=== PATIENT | female | born 1990 | race Caucasian/White ===

== ENCOUNTER 2019-05-21 11:16 | Emergency (ER) | payer BC, OTHER ==
[~2019-05-21] VITALS: Ht 160 cm; Wt 69.0 kg
[2019-05-21] MEDS ORDERED: IBUP200C25 PO (11:22)
[2019-05-21] MEDS ORDERED: QC A650T3 PO (11:22)
[2019-05-21] MEDS ORDERED: NORCO, ANEXSIA 5/325MG TABLET (HYDROcodone/ACETAMINOPHEN) PO ONE (11:45)
--- NOTE | 2019-05-21 12:12 | REP ---
Clinical: Trauma. Technique: AP, lateral, bilateral oblique views. Findings: The carpal bones, surrounding osseous structures, soft tissues, and joint spaces are normal. There is no evidence for acute fracture or dislocation. No subcutaneous emphysema or radiodense foreign body. Impression: Normal wrist series. No acute fracture or dislocation Electronically Signed by Ant Schaefer MD 05/21/2019 12:04 P
--- NOTE | 2019-05-21 12:15 | REP ---
The clinical: Trauma. Technique: AP, lateral views of the right hand. Findings: Acute versus old fracture involving the distal aspect of the fifth metacarpal bone requires correlation. Remainder examination appears normal. Impression: Acute versus old fracture of the fifth metacarpal bone requires correlation. Remainder examination appears normal. Electronically Signed by Ant Schaefer MD 05/21/2019 12:06 P
--- NOTE | 2019-05-21 12:16 | REP ---
Clinical: Trauma. Technique: AP and lateral views of the right forearm. Findings: No acute fracture or dislocation. Skeletal structures, joint spaces, and surrounding soft tissues appear normal. Impression: No acute fracture or dislocation. Electronically Signed by Ant Schaefer MD 05/21/2019 12:07 P
[2019-05-21] MEDS ORDERED: NORC1TAB7 PO (12:54)
[2019-05-21 13:00] VITALS: BP 125/74
== END 2019-05-21 13:04 | disposition home or self-care (01) ==
LOC: M ED 11:16
DX: S62.306B Unspecified fracture of fifth metacarpal bone, right hand, initial encounter for open fracture (principal); W18.30XA Fall on same level, unspecified, initial encounter; Y92.098 Other place in other non-institutional residence as the place of occurrence of the external cause; F17.210 Nicotine dependence, cigarettes, uncomplicated

== ENCOUNTER → 2019-05-25 | Outpatient (REF) | payer OTHER ==
[~2019-05-25] MED LIST: IBUP200C25 PO; NORC1TAB7 PO; QC A650T3 PO
== END ==
LOC: M LAB 13:28
PROVIDERS: ATTEND Physician Assistant
DX: R50.9 Fever, unspecified (principal)

== ENCOUNTER 2019-05-28 11:05 | Emergency (ER) | payer OTHER ==
[~2019-05-28] VITALS: Ht 160 cm; Wt 66.5 kg
[2019-05-28] MEDS ORDERED: [UNRECOGNIZED DRUG - OTHER] (11:11)
[2019-05-28] MEDS ORDERED: BENZ200C70 PO (11:11)
--- NOTE | 2019-05-28 13:00 | REP ---
Chest x-ray: Two views. History: Shortness of breath and cough . Comparison study: May 09, 2007 . Findings: The lungs are well inflated and free of infiltrate. The pleural angles are sharp. The heart size is normal. Pulmonary vasculature is not increased. No significant bony abnormality is seen. Impression: Negative chest x-ray. Electronically Signed by Harrison Pepper MD 05/28/2019 12:52 P
[2019-05-28 13:15] VITALS: BP 123/75
[2019-05-28] MEDS ORDERED: MOME50SP NARES (13:25)
[2019-05-28] MEDS ORDERED: MUCI30TA5 PO (13:25)
== END 2019-05-28 13:30 | disposition home or self-care (01) ==
LOC: M ED 11:05
DX: J06.9 Acute upper respiratory infection, unspecified (principal)

== ENCOUNTER 2019-06-17 14:53 | Emergency (ER) | payer OTHER ==
[~2019-06-17] VITALS: Ht 160 cm; Wt 60.1 kg
[~2019-06-17 14:53] MED LIST changes: +BENZ200C70 PO; +MOME50SP NARES; +MUCI30TA5 PO; +[UNRECOGNIZED DRUG - OTHER]
[2019-06-17 14:54] VITALS: BP 132/84
[2019-06-17 15:57] LABS: BASO % 0.4 % (0.0-1.0); EOS # 0.2 10^3/uL (0.0-0.5); EOS % 2.2 % (0.0-3.0); HEMATOCRIT 41.2 % (36.0-47.0); HEMOGLOBIN 13.3 g/dl (12.0-15.5); LYMPH % 26.4 % (24.0-44.0); MEAN CORPUSCULAR HEMOGLOBIN 28.1 pg (27.0-33.0); MEAN CORPUSCULAR HGB CONC 32.3 g/dl (32.0-36.5); MEAN CORPUSCULAR VOLUME 86.9 fl (80.0-96.0); MONO # 0.5 10^3/uL (0.0-0.8); MONO % 6.1 % (0.0-5.0); NEUTROPHILS # 4.8 10^3/uL (1.5-8.5); NEUTROPHILS % 64.6 % (36.0-66.0); PLATELET COUNT, AUTOMATED 207 10^3/uL (150-450); RED BLOOD COUNT 4.74 10^6/uL (4.00-5.40); WHITE BLOOD COUNT 7.4 10^3/uL (4.0-10.0)
[2019-06-17 16:25] LABS: ALBUMIN 3.7 GM/DL (3.2-5.2); ALT/SGPT 15 U/L (12-78); BILIRUBIN,DIRECT < 0.1 MG/DL (0.0-0.2); BILIRUBIN,TOTAL 0.2 MG/DL (0.2-1.0); LIPASE 194 U/L (73-393); TOTAL PROTEIN 6.6 GM/DL (6.4-8.2)
== END 2019-06-17 19:09 | disposition left against medical advice (07) ==
LOC: M ED 14:53
DX: Z53.21 Procedure and treatment not carried out due to patient leaving prior to being seen by health care provider (principal)

== ENCOUNTER 2019-06-30 17:17 | Emergency (ER) | payer OTHER ==
[~2019-06-30] VITALS: Ht 160 cm; Wt 67.1 kg
[2019-06-30 18:17] LABS: BASO % 0.2 % (0.0-1.0); EOS # 0.2 10^3/uL (0.0-0.5); HEMATOCRIT 42.9 % (36.0-47.0); HEMOGLOBIN 13.6 g/dl (12.0-15.5); LYMPH # 2.4 10^3/uL (1.5-5.0); LYMPH % 25.6 % (24.0-44.0); MEAN CORPUSCULAR HEMOGLOBIN 27.8 pg (27.0-33.0); MEAN CORPUSCULAR HGB CONC 31.7 g/dl (32.0-36.5); MEAN CORPUSCULAR VOLUME 87.6 fl (80.0-96.0); MONO # 0.5 10^3/uL (0.0-0.8); NEUTROPHILS # 6.1 10^3/uL (1.5-8.5); NEUTROPHILS % 66.9 % (36.0-66.0); PLATELET COUNT, AUTOMATED 212 10^3/uL (150-450); WHITE BLOOD COUNT 9.2 10^3/uL (4.0-10.0)
[2019-06-30] MEDS ORDERED: MORPHINE 4 MG/ML 1ML VIAL/SYRINGE (J2270) IV ONE (18:30)
[2019-06-30 18:36] LABS: ALT/SGPT 32 U/L (12-78); BILIRUBIN,DIRECT 0.2 MG/DL (0.0-0.2); BILIRUBIN,TOTAL 0.5 MG/DL (0.2-1.0); BLOOD UREA NITROGEN 14 MG/DL (7-18); CALCIUM LEVEL 9.1 MG/DL (8.5-10.1); CARBON DIOXIDE LEVEL 28 MEQ/L (21-32); CHLORIDE LEVEL 107 MEQ/L (98-107); CREATININE FOR GFR 0.74 MG/DL (0.55-1.30); GLOMERULAR FILTRATION RATE > 60.0 (>60); GLUCOSE, FASTING 90 MG/DL (70-100); LIPASE 168 U/L (73-393); POTASSIUM SERUM 4.2 MEQ/L (3.5-5.1); SODIUM LEVEL 140 MEQ/L (136-145); TOTAL PROTEIN 7.6 GM/DL (6.4-8.2)
[2019-06-30 18:44] LABS: HCG, SERUM QUALITATIVE NEGATIVE (NEGATIVE)
--- NOTE | 2019-06-30 19:23 | REPVR ---
PROCEDURE INFORMATION: Exam: CT Abdomen And Pelvis Without Contrast Exam date and time: 06/30/2019 6:56 PM Age: 28 years old Clinical indication: Abdominal pain; Flank; Right; Additional info: Right flank pain TECHNIQUE: Imaging protocol: Computed tomography of the abdomen and pelvis without contrast. Axial, coronal and sagittal reformatted images were created and reviewed. Radiation optimization: All CT scans at this facility use at least one of these dose optimization techniques: automated exposure control; mA and/or kV adjustment per patient size (includes targeted exams where dose is matched to clinical indication); or iterative reconstruction. COMPARISON: No relevant prior studies available. FINDINGS: Liver: Unremarkable. Gallbladder and bile ducts: No radiodense gallstones. No biliary ductal dilatation. Pancreas: Unremarkable. Spleen: Unremarkable. Adrenals: Unremarkable. Kidneys and ureters: Non-obstructing bilateral renal calculi. No hydronephrosis. Stomach and bowel: No bowel wall thickening. No obstruction. No pneumatosis. Appendix: Findings suggestive of prior appendectomy. Intraperitoneal space: No free fluid. No organized fluid collection. No free air. Vasculature: Unremarkable. No aneurysm. Lymph nodes: No pathologically enlarged lymph nodes. Bladder: Unremarkable. Reproductive: 2.8 x 2.6 cm left adnexal cystic lesion, likely a follicular cyst. Status post hysterectomy. Bones/joints: No acute osseous abnormality. Soft tissues: Unremarkable. IMPRESSION: 1. Limited noncontrast examination. 2. Non-obstructing bilateral renal calculi. No hydronephrosis. 3. Additional findings, as above. Electronically signed by: Rajan Concepcion On 06/30/2019 19:22:40 PM
[2019-06-30] MEDS ORDERED: IBUP80TA PO (19:55)
[2019-06-30] MEDS ORDERED: CYCL5TAB PO (19:55)
[2019-06-30 20:17] VITALS: BP 134/82
== END 2019-06-30 20:27 | disposition home or self-care (01) ==
LOC: M ED 17:17
DX: M54.5 Low back pain (principal); E28.2 Polycystic ovarian syndrome; Z88.0 Allergy status to penicillin; Z88.5 Allergy status to narcotic agent; Z88.8 Allergy status to other drugs, medicaments and biological substances; Z87.891 Personal history of nicotine dependence
CPT/HCPCS: 74176; 80048; 80076; 81001; 83690; 84703; 85025; 96374; 99284; J2270

== ENCOUNTER 2019-10-16 14:00 | Emergency (ER) | payer OTHER, SELFPAY ==
[~2019-10-16] VITALS: Ht 160 cm; Wt 68.5 kg
[~2019-10-16 14:00] MED LIST changes: +CYCL5TAB PO; +IBUP80TA PO
[2019-10-16] MEDS ORDERED: ACET-683 PO (14:09)
[2019-10-16] MEDS ORDERED: NS 1,000 ML IV ONE (14:30)
[2019-10-16] MEDS ORDERED: MORPHINE 4 MG/ML 1ML VIAL/SYRINGE (J2270) IV ONE (14:30)
[2019-10-16] MEDS ORDERED: ONDANSETRON 4MG/2ML VIAL IV ONE (14:30)
[2019-10-16 14:58] LABS: BASO % 0.3 % (0.0-1.0); EOS # 0.2 10^3/uL (0.0-0.5); EOS % 3.2 % (0.0-3.0); HEMATOCRIT 41.5 % (36.0-47.0); LYMPH # 1.5 10^3/uL (1.5-5.0); MEAN CORPUSCULAR HEMOGLOBIN 29.5 pg (27.0-33.0); MEAN CORPUSCULAR HGB CONC 33.7 g/dl (32.0-36.5); MEAN CORPUSCULAR VOLUME 87.6 fl (80.0-96.0); MONO # 0.4 10^3/uL (0.0-0.8); MONO % 5.9 % (0.0-5.0); NEUTROPHILS # 3.8 10^3/uL (1.5-8.5); NEUTROPHILS % 64.3 % (36.0-66.0); PLATELET COUNT, AUTOMATED 167 10^3/uL (150-450); RED BLOOD COUNT 4.74 10^6/uL (4.00-5.40); WHITE BLOOD COUNT 5.9 10^3/uL (4.0-10.0)
--- NOTE | 2019-10-16 15:24 | REP ---
CT ABDOMEN AND PELVIS WITHOUT IV OR ORAL CONTRAST: Renal stone protocol. HISTORY: Flank pain and dysuria. COMPARISON STUDY: June 30, 2019. CT FINDINGS: Preliminary digital technical trainer radiograph shows an unremarkable bowel gas pattern. The lung bases are clear. The liver and the spleen are normal in size homogeneous in texture. No abnormality is noted in the gallbladder or the pancreas x CT. No adrenal lesion is seen on either side. There is a 4 mm intrarenal calculus in the upper pole left kidney. There is a 2 mm intrarenal calculus in the lower pole of the left kidney. There is no evidence of hydronephrosis. No intrarenal calculus is seen on the right. Left renal calculi are unchanged. I do not see an intrarenal calculus on the right. No ureteral stone is observed. There are phleboliths in the pelvis. Uterus is surgically absent. No bladder calculus is seen. There are sutures at the cecal tip consistent with prior appendectomy. Small and large bowel loops are unremarkable. No abdominal wall defect is observed. IMPRESSION: The uterus and appendix are surgically absent. There is intrarenal nephrolithiasis left kidney unchanged from the comparison study June 30, 2019. No hydronephrosis is seen. No other urinary tract calculus is observed. Otherwise negative CT study abdomen and pelvis. Electronically Signed by Harrison Pepper MD 10/16/2019 03:30 P
[2019-10-16] MEDS ORDERED: CYCLOBENZAPRINE 10MG TABLET PO ONE (15:30)
[2019-10-16] MEDS ORDERED: ACETAMINOPHEN 325 MG TAB PO ONE (15:30)
[2019-10-16] MEDS ORDERED: CYCL5TAB PO (17:01)
[2019-10-16 17:08] VITALS: BP 120/66
== END 2019-10-16 17:11 | disposition home or self-care (01) ==
LOC: M ED 14:00
DX: S39.012A Strain of muscle, fascia and tendon of lower back, initial encounter (principal); X58.XXXA Exposure to other specified factors, initial encounter; Y92.89 Other specified places as the place of occurrence of the external cause; R11.10 Vomiting, unspecified; E28.2 Polycystic ovarian syndrome; Z87.42 Personal history of other diseases of the female genital tract; Z87.442 Personal history of urinary calculi; Z88.0 Allergy status to penicillin; Z88.5 Allergy status to narcotic agent; F17.210 Nicotine dependence, cigarettes, uncomplicated
CPT/HCPCS: 74176; 80047; 81001; 84702; 85025; 96361; 96374; 96375; 99284; J2270; J2405

== ENCOUNTER 2020-01-17 15:56 | Emergency (ER) | payer SELFPAY ==
[~2020-01-17] VITALS: Ht 160 cm; Wt 70.8 kg
[~2020-01-17 15:56] MED LIST changes: +ACET-683 PO
[2020-01-17 15:57] VITALS: BP 132/83
[2020-01-17] MEDS ORDERED: NAPR-837 PO (17:39)
--- NOTE | 2020-02-17 09:57 | REP ---
RIGHT KNEE RADIOGRAPH SERIES CLINICAL: Trauma while running. TECHNIQUE: AP, lateral, bilateral oblique, and coned down views of the right knee. FINDINGS: Osseous structures, joint spaces, and surrounding soft tissues are normal. No acute fracture or dislocation. No subcutaneous emphysema or foreign body. IMPRESSION: Normal right knee radiographs. MTDD
== END 2020-01-17 17:50 | disposition home or self-care (01) ==
LOC: M ED 15:56
DX: S83.421A Sprain of lateral collateral ligament of right knee, initial encounter (principal); X50.9XXA Other and unspecified overexertion or strenuous movements or postures, initial encounter; Y92.9 Unspecified place or not applicable; Y93.02 Activity, running; Y99.8 Other external cause status; Z88.0 Allergy status to penicillin; Z88.5 Allergy status to narcotic agent; Z88.8 Allergy status to other drugs, medicaments and biological substances; Z87.828 Personal history of other (healed) physical injury and trauma

== ENCOUNTER 2020-03-23 19:05 | Emergency (ER) | payer SELFPAY ==
[~2020-03-23] VITALS: Ht 160 cm; Wt 72.2 kg
[~2020-03-23 19:05] MED LIST changes: +NAPR-837 PO
[2020-03-23] MEDS ORDERED: ONDANSETRON 4MG/2ML VIAL IV ONE (19:45)
[2020-03-23] MEDS ORDERED: DICYCLOMINE INJ 20MG/2ML (J0500) IM ONE (19:45)
[2020-03-23] MEDS ORDERED: NS 1,000 ML IV ONE (19:45)
[2020-03-23 19:59] LABS: BASO % 0.5 % (0.0-1.0); EOS # 0.3 10^3/uL (0.0-0.5); EOS % 5.5 % (0.0-3.0); HEMATOCRIT 42.3 % (36.0-47.0); HEMOGLOBIN 13.8 g/dl (12.0-15.5); LYMPH # 1.6 10^3/uL (1.5-5.0); LYMPH % 28.2 % (24.0-44.0); MEAN CORPUSCULAR HEMOGLOBIN 29.4 pg (27.0-33.0); MEAN CORPUSCULAR HGB CONC 32.6 g/dl (32.0-36.5); MEAN CORPUSCULAR VOLUME 90.2 fl (80.0-96.0); MONO # 0.4 10^3/uL (0.0-0.8); MONO % 6.5 % (0.0-5.0); NEUTROPHILS # 3.3 10^3/uL (1.5-8.5); NEUTROPHILS % 58.8 % (36.0-66.0); PLATELET COUNT, AUTOMATED 175 10^3/uL (150-450); RED BLOOD COUNT 4.69 10^6/uL (4.00-5.40); WHITE BLOOD COUNT 5.7 10^3/uL (4.0-10.0)
[2020-03-23 20:25] LABS: ALBUMIN 3.6 GM/DL (3.2-5.2); BILIRUBIN,DIRECT 0.1 MG/DL (0.0-0.2); BILIRUBIN,TOTAL 0.3 MG/DL (0.2-1.0); TOTAL PROTEIN 6.8 GM/DL (6.4-8.2)
[2020-03-23] MEDS ORDERED: MORPHINE 2 MG/ML 1ML VIAL (J2270) IV ONE (20:30)
--- NOTE | 2020-03-23 20:49 | REPVR ---
PROCEDURE INFORMATION: Exam: CT Abdomen And Pelvis With Contrast Exam date and time: 03/23/2020 8:12 PM Age: 29 years old Clinical indication: Abdominal pain; Localized; Left; Additional info: Left sided abdominal pain; ? Coliitis vs diverticulitis TECHNIQUE: Imaging protocol: Computed tomography of the abdomen and pelvis with intravenous contrast. Radiation optimization: All CT scans at this facility use at least one of these dose optimization techniques: automated exposure control; mA and/or kV adjustment per patient size (includes targeted exams where dose is matched to clinical indication); or iterative reconstruction. Contrast material: ISOVUE 370; Contrast volume: 100 ml; Contrast route: INTRAVENOUS (IV); COMPARISON: CT ABD PELVIS W/O CONTRAST 10/16/2019 2:50 PM FINDINGS: Liver: Normal. No mass. Gallbladder and bile ducts: Normal. No calcified stones. No ductal dilation. Pancreas: Normal. No ductal dilation. Spleen: Normal. No splenomegaly. Adrenal glands: Normal. No mass. Kidneys and ureters: Nonobstructing calyceal stone in the left kidney. No renal masses. No hydronephrosis. Stomach and bowel: Unremarkable. No obstruction. No mucosal thickening. Appendix: There has been prior appendectomy. Intraperitoneal space: Unremarkable. No free air. No significant fluid collection. Vasculature: Unremarkable. No abdominal aortic aneurysm. Lymph nodes: Unremarkable. No enlarged lymph nodes. Urinary bladder: Unremarkable as visualized. Reproductive: There has been prior hysterectomy. Bones/joints: Unremarkable. No acute fracture. Soft tissues: Unremarkable. IMPRESSION: 1. No acute findings. 2. Nonobstructing calyceal stone in the left kidney. No hydronephrosis. Electronically signed by: Chad Ricks On 03/23/2020 20:49:00 PM
[2020-03-23] MEDS ORDERED: ISOVUE-370 76% 100ML VIAL As Ordered ONE (20:50)
[2020-03-23] MEDS ORDERED: REGL10TA6 PO (20:57)
[2020-03-23 21:05] VITALS: BP 108/55
== END 2020-03-23 21:09 | disposition home or self-care (01) ==
LOC: M ED 19:05
DX: R10.12 Left upper quadrant pain (principal); R10.32 Left lower quadrant pain; R11.10 Vomiting, unspecified; Z87.442 Personal history of urinary calculi; Z87.42 Personal history of other diseases of the female genital tract; F17.210 Nicotine dependence, cigarettes, uncomplicated; Z88.1 Allergy status to other antibiotic agents; Z88.5 Allergy status to narcotic agent
CPT/HCPCS: 74177; 80047; 80076; 83690; 85025; 96372; 96374; 96375; 99284; J0500; J2270; J2405; Q9967

== ENCOUNTER 2020-05-02 17:15 | Emergency (ER) | payer SELFPAY ==
[~2020-05-02] VITALS: Ht 160 cm; Wt 78.2 kg
[~2020-05-02 17:15] MED LIST changes: +REGL10TA6 PO
[2020-05-02] MEDS ORDERED: predniSONE 20 MG TAB PO ONE (18:00)
[2020-05-02] MEDS ORDERED: CYCLOBENZAPRINE 10MG TABLET PO ONE (18:00)
--- NOTE | 2020-05-02 18:54 | REP ---
INDICATION: daughter jumped on back. COMPARISON: None. TECHNIQUE: Five views lumbosacral spine obtained. FINDINGS: No compression fracture or malalignment. There is normal lumbar lordosis. There is no spondylolysis or spondylolisthesis. Disc spaces are well preserved. The posterior elements are intact. Subcentimeter calculus is noted in the lower pole the left kidney. IMPRESSION: Negative lumbosacral spine series. <Electronically signed by Carlos Gaitan > 05/02/20 [id number]
--- NOTE | 2020-05-02 18:56 | REP ---
INDICATION: daughter jumped on back. COMPARISON: None. TECHNIQUE: Three AP and lateral views obtained of the thoracic spine. FINDINGS: No fracture or malalignment. Normal thoracic kyphosis. Disc spaces are well preserved. Posterior elements are intact. IMPRESSION: Negative thoracic spine series. <Electronically signed by Carlos Gaitan > 05/02/20 [id number]
[2020-05-02] MEDS ORDERED: PRED20TA PO (19:27)
[2020-05-02] MEDS ORDERED: CYCL5TAB PO (19:27)
[2020-05-02 19:37] VITALS: BP 121/79
== END 2020-05-02 19:38 | disposition home or self-care (01) ==
LOC: M ED 17:15
DX: M54.9 Dorsalgia, unspecified (principal); E28.2 Polycystic ovarian syndrome; F17.200 Nicotine dependence, unspecified, uncomplicated; Z87.442 Personal history of urinary calculi; Z88.1 Allergy status to other antibiotic agents; Z88.5 Allergy status to narcotic agent; Z88.6 Allergy status to analgesic agent

== ENCOUNTER 2020-06-15 12:32 | Emergency (ER) | payer SELFPAY ==
[~2020-06-15] VITALS: Ht 160 cm; Wt 76.6 kg
[~2020-06-15 12:32] MED LIST changes: +PRED20TA PO
[2020-06-15] MEDS ORDERED: NS 1,000 ML IV ONE (14:15)
[2020-06-15 14:35] LABS: BASO % 0.4 % (0.0-1.0); EOS # 0.1 10^3/uL (0.0-0.5); EOS % 1.6 % (0.0-3.0); HEMATOCRIT 42.5 % (36.0-47.0); LYMPH # 0.9 10^3/uL (1.5-5.0); LYMPH % 17.7 % (24.0-44.0); MEAN CORPUSCULAR HEMOGLOBIN 29.1 pg (27.0-33.0); MEAN CORPUSCULAR HGB CONC 32.9 g/dl (32.0-36.5); MEAN CORPUSCULAR VOLUME 88.4 fl (80.0-96.0); MONO # 0.5 10^3/uL (0.0-0.8); MONO % 9.4 % (0.0-5.0); NEUTROPHILS # 3.6 10^3/uL (1.5-8.5); NEUTROPHILS % 70.7 % (36.0-66.0); PLATELET COUNT, AUTOMATED 188 10^3/uL (150-450); RED BLOOD COUNT 4.81 10^6/uL (4.00-5.40)
[2020-06-15] MEDS ORDERED: MORPHINE 4 MG/ML 1ML VIAL/SYRINGE (J2270) IV ONE (14:45)
[2020-06-15] MEDS ORDERED: ONDANSETRON 4MG/2ML VIAL IV ONE (14:45)
[2020-06-15 14:57] LABS: ALBUMIN 4.2 GM/DL (3.2-5.2); BILIRUBIN,DIRECT 0.1 MG/DL (0.0-0.2); BILIRUBIN,TOTAL 0.4 MG/DL (0.2-1.0); TOTAL PROTEIN 7.4 GM/DL (6.4-8.2)
--- NOTE | 2020-06-15 15:27 | REP ---
INDICATION: R flank pain, h/o kidney stones COMPARISON: Comparison study March 23, 2020.. TECHNIQUE: Helical scanning is acquired in 4 mm axial images were reformatted. Coronal and sagittal MPR images were generated and reviewed. FINDINGS: Preliminary digital electrolysis investigator radiograph is noncontributory. The liver and the spleen are normal in size homogeneous in texture. Normal adrenal glands are observed bilaterally. No abnormality is noted in the gallbladder or the pancreas. There is a small accessory splenule again noted in the left upper quadrant near the tail of the pancreas. There is a tiny intrarenal calculus in the lower pole of each kidney 1-2 mm in size. There is no evidence of hydronephrosis on either side. No ureteral or bladder calculus is apparent. The uterus and appendix are surgically absent. No adnexal pathology is seen. No abdominal wall defect is observed. Small and large bowel loops are unremarkable in the abdomen and pelvis. no bony destructive lesion is appreciated. IMPRESSION: Bilateral intrarenal nephrolithiasis, 1 tiny calculus in each lower pole. No hydronephrosis. Status post appendectomy and hysterectomy. Otherwise negative CT abdomen and pelvis. <Electronically signed by Dann Pepper > 06/15/20 [id number]
[2020-06-15] MEDS ORDERED: ACETAMINOPHEN 325 MG TAB PO ONE (16:00)
[2020-06-15] MEDS ORDERED: HYDR-3713 PO (16:30)
[2020-06-15 16:38] VITALS: BP 133/58
== END 2020-06-15 16:39 | disposition home or self-care (01) ==
LOC: M ED 12:32
DX: N20.0 Calculus of kidney (principal); Z87.891 Personal history of nicotine dependence; Z88.1 Allergy status to other antibiotic agents; Z88.6 Allergy status to analgesic agent; Z88.8 Allergy status to other drugs, medicaments and biological substances
CPT/HCPCS: 74176; 80047; 80076; 81001; 83690; 85025; 96361; 96374; 96375; 99284; J2270; J2405

== ENCOUNTER 2021-01-07 11:33 | Emergency (ER) | payer SELFPAY ==
[~2021-01-07] VITALS: Ht 160 cm; Wt 64.6 kg
[~2021-01-07 11:33] MED LIST changes: +HYDR-3713 PO
--- NOTE | 2021-01-07 12:37 | REP ---
INDICATION: R/O STONE (Hx OF HYSTERECTOMY) COMPARISON: 06/15/2020. TECHNIQUE: CT Scan of the abdomen and pelvis was performed without intravenous contrast. Sagittal and coronal reconstruction images performed. FINDINGS: Lung bases: Unremarkable. Liver: Grossly unremarkable. Gallbladder: Unremarkable. Spleen: Grossly unremarkable. Adrenals: Normal. Pancreas: Grossly unremarkable.. Kidneys: No hydronephrosis. Ureters demonstrate no dilatation or calculus. There is a punctate calculus in the mid left kidney. Small and large bowel: Grossly unremarkable. There is no free air or obstruction. Free fluid: None. Abdominal aorta: No aneurysm. Adenopathy: None. Appendix: Prior appendectomy. Osseous structures: Unremarkable. Pelvis: No mass. No bladder calculus seen. Prior hysterectomy. IMPRESSION: Punctate left intrarenal calculus. No ureteral or bladder calculus and no evidence of hydroureteronephrosis. No acute abnormalities detected. <Electronically signed by Carlos Gaitan > 01/07/21 [id number]
[2021-01-07 12:56] LABS: BASO % 0.4 % (0.0-1.0); EOS # 0.2 10^3/uL (0.0-0.5); EOS % 2.7 % (0.0-3.0); HEMATOCRIT 42.1 % (36.0-47.0); HEMOGLOBIN 13.7 g/dl (12.0-15.5); LYMPH # 1.7 10^3/uL (1.5-5.0); LYMPH % 22.7 % (24.0-44.0); MEAN CORPUSCULAR HEMOGLOBIN 29.5 pg (27.0-33.0); MEAN CORPUSCULAR HGB CONC 32.5 g/dl (32.0-36.5); MEAN CORPUSCULAR VOLUME 90.7 fl (80.0-96.0); MONO # 0.4 10^3/uL (0.0-0.8); MONO % 5.6 % (2.0-8.0); NEUTROPHILS % 68.5 % (36.0-66.0); PLATELET COUNT, AUTOMATED 180 10^3/uL (150-450); RED BLOOD COUNT 4.64 10^6/uL (4.00-5.40); WHITE BLOOD COUNT 7.3 10^3/uL (4.0-10.0)
[2021-01-07 13:26] LABS: ALBUMIN 3.9 GM/DL (3.2-5.2); ALT/SGPT 20 U/L (12-78); BILIRUBIN,DIRECT 0.2 MG/DL (0.0-0.2); BILIRUBIN,TOTAL 0.5 MG/DL (0.2-1.0); BLOOD UREA NITROGEN 10 MG/DL (7-18); CALCIUM LEVEL 8.7 MG/DL (8.5-10.1); CARBON DIOXIDE LEVEL 31 MEQ/L (21-32); CHLORIDE LEVEL 108 MEQ/L (98-107); CREATININE FOR GFR 0.76 MG/DL (0.55-1.30); GLOMERULAR FILTRATION RATE > 60.0 (>60); GLUCOSE, FASTING 86 MG/DL (70-100); LIPASE 175 U/L (73-393); SODIUM LEVEL 141 MEQ/L (136-145); TOTAL PROTEIN 6.8 GM/DL (6.4-8.2)
[2021-01-07] MEDS ORDERED: ONDANSETRON 4 MG ORAL DISINTEGRATING TAB PO ONE (13:50)
[2021-01-07 13:54] VITALS: BP 133/71
== END 2021-01-07 14:16 | disposition home or self-care (01) ==
LOC: M ED 11:33
DX: R10.9 Unspecified abdominal pain (principal); N80.9 Endometriosis, unspecified; N73.9 Female pelvic inflammatory disease, unspecified; Z88.1 Allergy status to other antibiotic agents; Z88.5 Allergy status to narcotic agent; Z88.8 Allergy status to other drugs, medicaments and biological substances; Z87.891 Personal history of nicotine dependence; F12.20 Cannabis dependence, uncomplicated
CPT/HCPCS: 36415; 74176; 80048; 80076; 81001; 83690; 85025; 99283; Q0162

== ENCOUNTER 2021-01-23 00:52 | Emergency (ER) | payer SELFPAY ==
[~2021-01-23] VITALS: Ht 160 cm; Wt 65.0 kg
[2021-01-23 00:52] VITALS: BP 147/82
== END 2021-01-23 00:57 | disposition left against medical advice (07) ==
LOC: M ED 00:52
DX: Z53.29 Procedure and treatment not carried out because of patient's decision for other reasons (principal)

== ENCOUNTER 2021-03-28 17:11 | Emergency (ER) | payer SELFPAY ==
[~2021-03-28] VITALS: Ht 160 cm; Wt 60.8 kg
[2021-03-28] MEDS ORDERED: ACET-683 PO (17:19)
[2021-03-28] MEDS ORDERED: IBUP-1022 PO (17:19)
[2021-03-28 18:05] LABS: BASO % 0.3 % (0.0-1.0); EOS # 0.1 10^3/uL (0.0-0.5); EOS % 1.3 % (0.0-3.0); HEMATOCRIT 44.5 % (36.0-47.0); HEMOGLOBIN 14.9 g/dl (12.0-15.5); LYMPH # 1.6 10^3/uL (1.5-5.0); LYMPH % 19.8 % (24.0-44.0); MEAN CORPUSCULAR HEMOGLOBIN 29.1 pg (27.0-33.0); MEAN CORPUSCULAR HGB CONC 33.5 g/dl (32.0-36.5); MEAN CORPUSCULAR VOLUME 86.9 fl (80.0-96.0); MONO # 0.5 10^3/uL (0.0-0.8); MONO % 5.9 % (2.0-8.0); NEUTROPHILS # 5.8 10^3/uL (1.5-8.5); NEUTROPHILS % 72.3 % (36.0-66.0); PLATELET COUNT, AUTOMATED 205 10^3/uL (150-450); RED BLOOD COUNT 5.12 10^6/uL (4.00-5.40)
[2021-03-28 18:25] LABS: URINE PREG TEST NEGATIVE (NEGATIVE)
[2021-03-28] MEDS ORDERED: MORPHINE 4 MG/ML 1ML VIAL/SYRINGE (J2270) IV ONE ×2 (18:25→19:35)
[2021-03-28] MEDS ORDERED: NS 1,000 ML IV ONE (18:25)
[2021-03-28] MEDS ORDERED: ONDANSETRON 4MG/2ML VIAL IV ONE ×2 (18:25→19:35)
[2021-03-28 18:34] LABS: ALBUMIN 4.5 GM/DL (3.2-5.2); BILIRUBIN,DIRECT 0.2 MG/DL (0.0-0.2); BILIRUBIN,TOTAL 0.9 MG/DL (0.2-1.0)
[2021-03-28] MEDS ORDERED: POTASSIUM CHLORIDE 10MEQ SR TABLET PO ONE (18:35)
--- NOTE | 2021-03-28 19:19 | REPVR ---
PROCEDURE INFORMATION: Exam: CT Abdomen And Pelvis Without Contrast Exam date and time: 03/28/2021 6:40 PM Age: 30 years old Clinical indication: Abdominal pain; Flank; Right; Prior surgery; Additional info: R flank pain TECHNIQUE: Imaging protocol: Computed tomography of the abdomen and pelvis without contrast. Axial, coronal and sagittal reformatted images were created and reviewed. Radiation optimization: All CT scans at this facility use at least one of these dose optimization techniques: automated exposure control; mA and/or kV adjustment per patient size (includes targeted exams where dose is matched to clinical indication); or iterative reconstruction. COMPARISON: CT ABD PELVIS W/O CONTRAST 01/07/2021 11:57 AM FINDINGS: Liver: Unremarkable. Gallbladder and bile ducts: No radiodense gallstones. No biliary ductal dilatation. Pancreas: Unremarkable. Spleen: Unremarkable. Adrenal glands: Normal. No mass. Kidneys and ureters: Punctate nonobstructing bilateral renal calculi. No hydronephrosis. Stomach and bowel: No bowel wall thickening. No obstruction. No pneumatosis. Appendix: Status post appendectomy. Intraperitoneal space: No free fluid. No organized fluid collection. No free air. Vasculature: Unremarkable. No aneurysm. Lymph nodes: No pathologically enlarged lymph nodes. Urinary bladder: Unremarkable as visualized. Reproductive: Status post hysterectomy. Bones/joints: No acute osseous abnormality. Soft tissues: Unremarkable. IMPRESSION: 1. Limited noncontrast examination without CT evidence of acute intra-abdominal or pelvic pathology. 2. Additional findings, as above. Electronically signed by: Rajan Concepcion On 03/28/2021 19:18:54 PM
[2021-03-28] MEDS ORDERED: ZOFR4TAB16 PO (20:18)
[2021-03-28 20:35] VITALS: BP 128/72
== END 2021-03-28 20:42 | disposition home or self-care (01) ==
LOC: M ED 17:11
DX: R10.9 Unspecified abdominal pain (principal); E28.2 Polycystic ovarian syndrome; Z87.442 Personal history of urinary calculi; Z88.0 Allergy status to penicillin; Z88.5 Allergy status to narcotic agent; Z88.8 Allergy status to other drugs, medicaments and biological substances
CPT/HCPCS: 74176; 80047; 80076; 81001; 83690; 84703; 85025; 93041; 94760; 96361; 96374; 96375; 96376; 99284; J2270; J2405

== ENCOUNTER 2021-05-20 21:00 | Emergency (ER) | payer SELFPAY ==
[~2021-05-20] VITALS: Ht 160 cm; Wt 59.1 kg
[~2021-05-20 21:00] MED LIST changes: +IBUP-1022 PO; +ZOFR4TAB16 PO
[2021-05-20] MEDS ORDERED: PEPT262T2 PO (21:08)
[2021-05-20] MEDS ORDERED: NS 1,000 ML IV ONE (23:30)
[2021-05-20] MEDS ORDERED: ONDANSETRON 4MG/2ML VIAL IV ONE (23:30)
[2021-05-21] MEDS: MORPHINE 4 MG/ML 1ML VIAL/SYRINGE (J2270) IV PRN ×2 (00:11→01:51)
[2021-05-21 00:22] LABS: BASO % 0.3 % (0.0-1.0); EOS # 0.3 10^3/uL (0.0-0.5); HEMATOCRIT 41.7 % (36.0-47.0); LYMPH # 2.2 10^3/uL (1.5-5.0); LYMPH % 33.9 % (24.0-44.0); MEAN CORPUSCULAR HGB CONC 33.6 g/dl (32.0-36.5); MEAN CORPUSCULAR VOLUME 86.3 fl (80.0-96.0); MONO # 0.4 10^3/uL (0.0-0.8); MONO % 5.9 % (2.0-8.0); NEUTROPHILS # 3.6 10^3/uL (1.5-8.5); NEUTROPHILS % 55.6 % (36.0-66.0); PLATELET COUNT, AUTOMATED 206 10^3/uL (150-450); RED BLOOD COUNT 4.83 10^6/uL (4.00-5.40); WHITE BLOOD COUNT 6.4 10^3/uL (4.0-10.0)
--- NOTE | 2021-05-21 00:22 | REPVR ---
PROCEDURE INFORMATION: Exam: US Abdomen, Limited; Right Upper Quadrant Exam date and time: 05/21/2021 12:07 AM Age: 30 years old Clinical indication: Abdominal pain; Acute; Additional info: Ruq abd pain TECHNIQUE: Imaging protocol: US abdomen. Real time ultrasound with image documentation. Limited exam focused on the right upper quadrant. COMPARISON: CT ABD PELVIS W/O CONTRAST 03/28/2021 6:38 PM FINDINGS: Liver: The liver demonstrates no focal defects. Gallbladder: The gallbladder demonstrates no stones and no wall thickening. Common bile duct: The CBD measures 5 mm. Pancreas: The pancreas is normal. Right kidney: The right kidney is normal measuring 9.7 cm with no hydronephrosis. Aorta: The abdominal aorta is of normal size. IMPRESSION: Negative right upper quadrant sonogram. Electronically signed by: Iban Augustin On 05/21/2021 00:21:26 AM
[2021-05-21 00:44] LABS: ALBUMIN 4.1 GM/DL (3.2-5.2); ALT/SGPT 21 U/L (12-78); BILIRUBIN,DIRECT 0.1 MG/DL (0.0-0.2); BILIRUBIN,TOTAL 0.4 MG/DL (0.2-1.0); BLOOD UREA NITROGEN 13 MG/DL (7-18); CARBON DIOXIDE LEVEL 26 MEQ/L (21-32); CHLORIDE LEVEL 108 MEQ/L (98-107); CREATININE FOR GFR 0.69 MG/DL (0.55-1.30); GLOMERULAR FILTRATION RATE > 60.0 (>60); GLUCOSE, FASTING 90 MG/DL (70-100); LIPASE 222 U/L (73-393); POTASSIUM SERUM 3.7 MEQ/L (3.5-5.1); SODIUM LEVEL 142 MEQ/L (136-145); TOTAL PROTEIN 7.1 GM/DL (6.4-8.2)
[2021-05-21] MEDS ORDERED: DICYCLOMINE 10 MG CAP PO ONE (02:20)
[2021-05-21] MEDS ORDERED: ISOVUE-370 76% 100ML VIAL As Ordered ONE (02:24)
--- NOTE | 2021-05-21 02:56 | REPVR ---
PROCEDURE INFORMATION: Exam: CT Abdomen And Pelvis With Contrast Exam date and time: 05/21/2021 2:20 AM Age: 30 years old Clinical indication: Abdominal pain; Generalized; Additional info: Ruq abd pain TECHNIQUE: Imaging protocol: Computed tomography of the abdomen and pelvis with contrast. Radiation optimization: All CT scans at this facility use at least one of these dose optimization techniques: automated exposure control; mA and/or kV adjustment per patient size (includes targeted exams where dose is matched to clinical indication); or iterative reconstruction. Contrast material: ISO; Contrast volume: 100 ml; Contrast route: INTRAVENOUS (IV); COMPARISON: CT ABD PELVIS W/O CONTRAST 03/28/2021 6:38 PM FINDINGS: Liver: Normal. No mass. Gallbladder and bile ducts: Normal. No calcified stones. No ductal dilation. Pancreas: Normal. No ductal dilation. Spleen: Normal. No splenomegaly. Adrenal glands: Normal. No mass. Kidneys and ureters: Small nonobstructing left renal calculus. Stomach and bowel: Unremarkable. No obstruction. No mucosal thickening. Appendix: Status post appendectomy. Intraperitoneal space: Unremarkable. No free air. No significant fluid collection. Vasculature: Unremarkable. No abdominal aortic aneurysm. Lymph nodes: Unremarkable. No enlarged lymph nodes. Urinary bladder: Unremarkable as visualized. Reproductive: Unremarkable as visualized. Bones/joints: Unremarkable. No acute fracture. Soft tissues: Unremarkable. IMPRESSION: 1. Small nonobstructing left renal calculus. 2. Otherwise negative CT abdomen/pelvis with little change from 03/28/2021. Electronically signed by: Iban Augustin On 05/21/2021 02:55:58 AM
[2021-05-21] MEDS ORDERED: PROMETHAZINE INJ 25 MG/ML VIAL (J2550) IV ONE (03:25)
[2021-05-21] MEDS ORDERED: ONDA4TAB6 PO (04:32)
[2021-05-21] MEDS ORDERED: PROM25TA12 PO (04:32)
[2021-05-21 04:48] VITALS: BP 111/70
== END 2021-05-21 05:05 | disposition home or self-care (01) ==
LOC: M ED 21:00
DX: R10.9 Unspecified abdominal pain (principal); N20.0 Calculus of kidney; E28.2 Polycystic ovarian syndrome; N80.9 Endometriosis, unspecified; Z87.442 Personal history of urinary calculi; Z88.0 Allergy status to penicillin; Z88.5 Allergy status to narcotic agent; Z88.8 Allergy status to other drugs, medicaments and biological substances
CPT/HCPCS: 74177; 76705; 80048; 80076; 81001; 83605; 83690; 85025; 93041; 96361; 96374; 96375; 96376; 99284; J2270; J2405; Q9967

== ENCOUNTER 2021-06-20 16:53 | Emergency (ER) | payer SELFPAY ==
[~2021-06-20] VITALS: Ht 160 cm; Wt 59.0 kg
[~2021-06-20 16:53] MED LIST changes: -MOME50SP NARES; +NASO50SP3 NARES; +ONDA4TAB6 PO; +PEPT262T2 PO; +PROM25TA12 PO
[2021-06-20] MEDS ORDERED: METOCLOPRAMIDE INJ 10MG/2ML VIAL (J2765 PER 1) IV ONE (18:00)
[2021-06-20] MEDS ORDERED: NS 1,000 ML IV ONE (18:00)
[2021-06-20 18:30] LABS: BASO % 0.3 % (0.0-1.0); EOS # 0.2 10^3/uL (0.0-0.5); EOS % 2.4 % (0.0-3.0); HEMATOCRIT 42.1 % (36.0-47.0); LYMPH # 1.5 10^3/uL (1.5-5.0); LYMPH % 19.5 % (24.0-44.0); MEAN CORPUSCULAR HEMOGLOBIN 29.5 pg (27.0-33.0); MEAN CORPUSCULAR HGB CONC 33.3 g/dl (32.0-36.5); MEAN CORPUSCULAR VOLUME 88.8 fl (80.0-96.0); MONO # 0.5 10^3/uL (0.0-0.8); MONO % 6.3 % (2.0-8.0); NEUTROPHILS # 5.6 10^3/uL (1.5-8.5); NEUTROPHILS % 71.2 % (36.0-66.0); PLATELET COUNT, AUTOMATED 214 10^3/uL (150-450); RED BLOOD COUNT 4.74 10^6/uL (4.00-5.40); WHITE BLOOD COUNT 7.9 10^3/uL (4.0-10.0)
[2021-06-20 18:56] LABS: ALBUMIN 3.7 GM/DL (3.2-5.2); ALT/SGPT 18 U/L (12-78); BILIRUBIN,DIRECT < 0.1 MG/DL (0.0-0.2); BILIRUBIN,TOTAL 0.2 MG/DL (0.2-1.0); BLOOD UREA NITROGEN 14 MG/DL (7-18); CALCIUM LEVEL 8.9 MG/DL (8.5-10.1); CARBON DIOXIDE LEVEL 26 MEQ/L (21-32); CHLORIDE LEVEL 108 MEQ/L (98-107); CREATININE FOR GFR 0.82 MG/DL (0.55-1.30); GLOMERULAR FILTRATION RATE > 60.0 (>60); GLUCOSE, FASTING 90 MG/DL (70-100); LIPASE 208 U/L (73-393); POTASSIUM SERUM 4.2 MEQ/L (3.5-5.1); SODIUM LEVEL 142 MEQ/L (136-145)
[2021-06-20] MEDS ORDERED: diphenhydrAMINE 50MG/ML VIAL (J1200) IV ONE (19:00)
[2021-06-20] MEDS ORDERED: MORPHINE 2 MG/ML 1ML VIAL (J2270) IV ONE ×2 (19:00→20:20)
[2021-06-20 21:04] VITALS: BP 126/57
== END 2021-06-20 21:05 | disposition home or self-care (01) ==
LOC: M ED 16:53
DX: R10.11 Right upper quadrant pain (principal); R11.2 Nausea with vomiting, unspecified; R19.7 Diarrhea, unspecified; N20.0 Calculus of kidney; E28.2 Polycystic ovarian syndrome; N80.9 Endometriosis, unspecified; K21.9 Gastro-esophageal reflux disease without esophagitis; F17.200 Nicotine dependence, unspecified, uncomplicated; Z88.1 Allergy status to other antibiotic agents; Z88.8 Allergy status to other drugs, medicaments and biological substances
CPT/HCPCS: 74176; 76705; 80048; 80076; 81001; 83690; 85025; 96374; 96375; 96376; 99284; J1200; J2270; J2765

== ENCOUNTER 2021-10-27 11:57 | Emergency (ER) | payer SELFPAY ==
[~2021-10-27] VITALS: Ht 160 cm; Wt 56.4 kg
[2021-10-27 12:50] LABS: BASO % 0.3 % (0.0-1.0); EOS # 0.1 10^3/uL (0.0-0.5); EOS % 1.3 % (0.0-3.0); HEMATOCRIT 43.8 % (36.0-47.0); HEMOGLOBIN 14.4 g/dl (12.0-15.5); LYMPH # 1.2 10^3/uL (1.5-5.0); LYMPH % 15.7 % (24.0-44.0); MEAN CORPUSCULAR HEMOGLOBIN 29.5 pg (27.0-33.0); MEAN CORPUSCULAR HGB CONC 32.9 g/dl (32.0-36.5); MEAN CORPUSCULAR VOLUME 89.8 fl (80.0-96.0); MONO # 0.5 10^3/uL (0.0-0.8); MONO % 5.7 % (2.0-8.0); NEUTROPHILS % 76.5 % (36.0-66.0); PLATELET COUNT, AUTOMATED 199 10^3/uL (150-450); RED BLOOD COUNT 4.88 10^6/uL (4.00-5.40); WHITE BLOOD COUNT 7.9 10^3/uL (4.0-10.0)
[2021-10-27 13:11] LABS: BLOOD UREA NITROGEN 11 MG/DL (7-18); CALCIUM LEVEL 9.6 MG/DL (8.5-10.1); CARBON DIOXIDE LEVEL 28 MEQ/L (21-32); CHLORIDE LEVEL 109 MEQ/L (98-107); CREATININE FOR GFR 0.82 MG/DL (0.55-1.30); GLOMERULAR FILTRATION RATE > 60.0 (>60); GLUCOSE, FASTING 105 MG/DL (70-100); POTASSIUM SERUM 4.3 MEQ/L (3.5-5.1); SODIUM LEVEL 141 MEQ/L (136-145)
[2021-10-27 13:13] LABS: HCG, SERUM QUALITATIVE NEGATIVE (NEGATIVE)
[2021-10-27] MEDS ORDERED: MORPHINE 4 MG/ML 1ML VIAL/SYRINGE IV ONE (15:05)
[2021-10-27] MEDS ORDERED: ONDANSETRON 4MG/2ML VIAL IV ONE (15:05)
[2021-10-27] MEDS ORDERED: NS 1,000 ML IV ONE (15:05)
[2021-10-27 15:25] LABS: ALBUMIN 4.2 GM/DL (3.2-5.2); ALT/SGPT 28 U/L (12-78); BILIRUBIN,DIRECT 0.2 MG/DL (0.0-0.2); BILIRUBIN,TOTAL 0.7 MG/DL (0.2-1.0); LIPASE 217 U/L (73-393); TOTAL PROTEIN 7.4 GM/DL (6.4-8.2)
[2021-10-27] MEDS ORDERED: ONDA4TAB6 PO (17:09)
[2021-10-27 17:22] VITALS: BP 116/74
== END 2021-10-27 17:28 | disposition home or self-care (01) ==
LOC: M ED 11:57
DX: R10.11 Right upper quadrant pain (principal); E28.2 Polycystic ovarian syndrome; N80.9 Endometriosis, unspecified; Z87.442 Personal history of urinary calculi; Z88.1 Allergy status to other antibiotic agents; Z88.8 Allergy status to other drugs, medicaments and biological substances; Z79.899 Other long term (current) drug therapy
CPT/HCPCS: 74176; 76705; 80048; 80076; 81001; 83690; 84703; 85025; 96361; 96374; 96375; 99284; J2270; J2405

== ENCOUNTER 2021-10-29 19:09 | Emergency (ER) | payer SELFPAY ==
[~2021-10-29] VITALS: Ht 160 cm; Wt 57.3 kg
[2021-10-29 20:45] LABS: HEMATOCRIT 42.2 % (36.0-47.0); HEMOGLOBIN 14.3 g/dl (12.0-15.5); MEAN CORPUSCULAR HEMOGLOBIN 29.9 pg (27.0-33.0); MEAN CORPUSCULAR HGB CONC 33.9 g/dl (32.0-36.5); MEAN CORPUSCULAR VOLUME 88.3 fl (80.0-96.0); PLATELET COUNT, AUTOMATED 205 10^3/uL (150-450); RED BLOOD COUNT 4.78 10^6/uL (4.00-5.40); WHITE BLOOD COUNT 9.4 10^3/uL (4.0-10.0)
[2021-10-29] MEDS ORDERED: LORazepam 2 MG/ML VIAL IV STA (21:02)
[2021-10-29] MEDS ORDERED: LORazepam 1 MG TAB PO ONE (21:15)
[2021-10-29 21:18] LABS: AMPHETAMINES LEVEL URINE NEGATIVE (NEGATIVE); BARBITURATES URINE NEGATIVE (NEGATIVE); BENZODIAZEPINES URINE NEGATIVE (NEGATIVE); CANNABINOIDS URINE POSITIVE (NEGATIVE); COCAINE METABOLITE URINE NEGATIVE (NEGATIVE); METHADONE URINE NEGATIVE (NEGATIVE); OPIATES URINE NEGATIVE (NEGATIVE); PHENCYCLIDINE URINE NEGATIVE (NEGATIVE)
[2021-10-29 21:31] LABS: ACETAMINOPHEN LEVEL < 2.0 UG/ML (10.0-30.0); ALBUMIN 4.3 GM/DL (3.2-5.2); ALT/SGPT 19 U/L (12-78); BILIRUBIN,DIRECT 0.2 MG/DL (0.0-0.2); BILIRUBIN,TOTAL 0.7 MG/DL (0.2-1.0); BLOOD UREA NITROGEN 7 MG/DL (7-18); CALCIUM LEVEL 9.8 MG/DL (8.5-10.1); CARBON DIOXIDE LEVEL 25 MEQ/L (21-32); CHLORIDE LEVEL 109 MEQ/L (98-107); CREATININE FOR GFR 0.74 MG/DL (0.55-1.30); ETHYL ALCOHOL (ETHANOL) < 0.003 % (0.000-0.010); GLOMERULAR FILTRATION RATE > 60.0 (>60); GLUCOSE, FASTING 90 MG/DL (70-100); POTASSIUM SERUM 4.1 MEQ/L (3.5-5.1); SALICYLATE LEVEL < 1.7 MG/DL (5.0-30.0); SODIUM LEVEL 144 MEQ/L (136-145); THYROID STIMULATING HORMONE 0.726 uIU/ML (0.358-3.740); TOTAL PROTEIN 7.6 GM/DL (6.4-8.2)
[2021-10-29 21:33] LABS: RSV AMPLIFICATION NEGATIVE (NEGATIVE)
[2021-10-29 21:37] LABS: HCG, SERUM QUALITATIVE NEGATIVE (NEGATIVE)
[2021-10-30] MEDS ORDERED: HOME MED LIST COMPLETE! XX SCH
[2021-10-30] MEDS ORDERED: LORazepam 2 MG TAB PO ONE (02:50)
[2021-10-30] MEDS ORDERED: LORazepam 1 MG TAB PO ONE (13:00)
[2021-10-30] MEDS ORDERED: ACETAMINOPHEN TAB 650MG DOSE (2X325MG) PO ONE (15:35)
[2021-10-30 15:56] VITALS: BP 132/72
== END 2021-10-30 16:00 ==
LOC: M ED 19:09
DX: R45.851 Suicidal ideations (principal); R00.1 Bradycardia, unspecified; F32.A Depression, unspecified; F41.9 Anxiety disorder, unspecified; Z88.1 Allergy status to other antibiotic agents; Z88.8 Allergy status to other drugs, medicaments and biological substances

== ENCOUNTER 2021-12-23 18:01 | Emergency (ER) | payer MEDICAID, SELFPAY ==
[~2021-12-23] VITALS: Ht 160 cm; Wt 56.4 kg
[2021-12-23] MEDS ORDERED: FAMOTIDINE 20MG/2ML VIAL IVP ONE (18:35)
[2021-12-23] MEDS ORDERED: methylPREDNISolone 125MG 2ML VIAL IV ONE (18:35)
[2021-12-23] MEDS ORDERED: busPIRone 10 MG TAB PO ONE (18:35)
[2021-12-23] MEDS ORDERED: hydrOXYzine 50 MG TAB PO ONE (18:35)
[2021-12-23] MEDS ORDERED: BUSP10TA (20:08)
[2021-12-23] MEDS ORDERED: ZOLO100T (20:08)
[2021-12-23] MEDS ORDERED: PRAZ1CAP (20:08)
[2021-12-23] MEDS ORDERED: RISP0.5T21 (20:08)
[2021-12-23] MEDS ORDERED: VIST50CA (20:08)
[2021-12-23] MEDS ORDERED: EPIP0.3I2 IM (21:08)
[2021-12-23 21:30] VITALS: BP 118/61
== END 2021-12-23 21:42 | disposition home or self-care (01) ==
LOC: M ED 18:01 → EDBD 18:01 → M ED 21:42
DX: S90.561A Insect bite (nonvenomous), right ankle, initial encounter (principal); S40.262A Insect bite (nonvenomous) of left shoulder, initial encounter; T63.441A Toxic effect of venom of bees, accidental (unintentional), initial encounter; Z88.1 Allergy status to other antibiotic agents; Z88.8 Allergy status to other drugs, medicaments and biological substances
CPT/HCPCS: 94760; 96374; 96375; 99284; J2930

== ENCOUNTER 2022-04-25 05:12 | Emergency (ER) | payer MEDICAID, SELFPAY ==
[~2022-04-25] VITALS: Ht 160 cm; Wt 57.3 kg
[~2022-04-25 05:12] MED LIST changes: +BUSP10TA; +EPIP0.3I2 IM; +PRAZ1CAP; +RISP0.5T21; +VIST50CA; +ZOLO100T
[2022-04-25] MEDS ORDERED: LAMI25TA PO (05:23)
[2022-04-25 06:21] LABS: BASO % 0.3 % (0.0-1.0); EOS # 0.2 10^3/uL (0.0-0.5); EOS % 2.6 % (0.0-3.0); HEMATOCRIT 37.8 % (36.0-47.0); HEMOGLOBIN 12.3 g/dl (12.0-15.5); LYMPH # 1.3 10^3/uL (1.5-5.0); LYMPH % 20.8 % (24.0-44.0); MEAN CORPUSCULAR HEMOGLOBIN 30.1 pg (27.0-33.0); MEAN CORPUSCULAR HGB CONC 32.5 g/dl (32.0-36.5); MEAN CORPUSCULAR VOLUME 92.6 fl (80.0-96.0); MONO # 0.4 10^3/uL (0.0-0.8); MONO % 6.1 % (2.0-8.0); NEUTROPHILS # 4.3 10^3/uL (1.5-8.5); PLATELET COUNT, AUTOMATED 136 10^3/uL (150-450); RED BLOOD COUNT 4.08 10^6/uL (4.00-5.40); WHITE BLOOD COUNT 6.1 10^3/uL (4.0-10.0)
[2022-04-25 06:47] LABS: AMPHETAMINES LEVEL URINE NEGATIVE (NEGATIVE); BARBITURATES URINE NEGATIVE (NEGATIVE); BENZODIAZEPINES URINE NEGATIVE (NEGATIVE); COCAINE METABOLITE URINE NEGATIVE (NEGATIVE); METHADONE URINE NEGATIVE (NEGATIVE); PHENCYCLIDINE URINE NEGATIVE (NEGATIVE)
[2022-04-25 06:49] LABS: ETHYL ALCOHOL (ETHANOL) 0.003 % (0.000-0.010)
[2022-04-25 06:50] LABS: MAGNESIUM LEVEL 1.8 MG/DL (1.8-2.4)
[2022-04-25 06:51] LABS: BLOOD UREA NITROGEN 24 MG/DL (9-23); CALCIUM LEVEL 8.1 MG/DL (8.5-10.1); CARBON DIOXIDE LEVEL 28 MMOL/L (20-31); CHLORIDE LEVEL 108 MMOL/L (98-107); CREATININE FOR GFR 0.77 MG/DL (0.55-1.30); GLOMERULAR FILTRATION RATE > 60.0 (>60); GLUCOSE, FASTING 108 MG/DL (60-100); SODIUM LEVEL 141 MMOL/L (136-145)
[2022-04-25 06:52] LABS: CANNABINOIDS URINE POSITIVE (NEGATIVE); OPIATES URINE POSITIVE (NEGATIVE)
[2022-04-25 06:54] LABS: THYROID STIMULATING HORMONE 2.206 uIU/ML (0.55-4.78)
[2022-04-25] MEDS ORDERED: NS 1,000 ML IV ONE (07:05)
[2022-04-25] MEDS ORDERED: ACETAMINOPHEN TAB 650MG DOSE (2X325MG) PO ONE (08:10)
[2022-04-25 09:34] VITALS: BP 108/53
== END 2022-04-25 09:53 | disposition home or self-care (01) ==
LOC: M ED 05:12
DX: R55 Syncope and collapse (principal); S09.90XA Unspecified injury of head, initial encounter; W01.198A Fall on same level from slipping, tripping and stumbling with subsequent striking against other object, initial encounter; Y92.009 Unspecified place in unspecified non-institutional (private) residence as the place of occurrence of the external cause; R94.31 Abnormal electrocardiogram [ECG] [EKG]; F41.9 Anxiety disorder, unspecified; Z88.0 Allergy status to penicillin; Z88.5 Allergy status to narcotic agent; Z88.8 Allergy status to other drugs, medicaments and biological substances; Z79.899 Other long term (current) drug therapy

== ENCOUNTER 2022-05-26 17:26 | Emergency (ER) | payer SELFPAY ==
[~2022-05-26] VITALS: Ht 160 cm; Wt 59.9 kg
[~2022-05-26 17:26] MED LIST changes: +LAMI25TA PO
[2022-05-26 19:46] LABS: BASO % 0.3 % (0.0-1.0); EOS # 0.2 10^3/uL (0.0-0.5); EOS % 2.9 % (0.0-3.0); HEMATOCRIT 41.9 % (36.0-47.0); HEMOGLOBIN 13.9 g/dl (12.0-15.5); LYMPH # 2.1 10^3/uL (1.5-5.0); MEAN CORPUSCULAR HGB CONC 33.2 g/dl (32.0-36.5); MEAN CORPUSCULAR VOLUME 90.5 fl (80.0-96.0); MONO # 0.5 10^3/uL (0.0-0.8); MONO % 7.2 % (2.0-8.0); NEUTROPHILS # 4.2 10^3/uL (1.5-8.5); NEUTROPHILS % 59.2 % (36.0-66.0); PLATELET COUNT, AUTOMATED 157 10^3/uL (150-450); RED BLOOD COUNT 4.63 10^6/uL (4.00-5.40); WHITE BLOOD COUNT 7.1 10^3/uL (4.0-10.0)
[2022-05-26] MEDS ORDERED: NS 1,000 ML IV ONE (20:05)
[2022-05-26] MEDS ORDERED: MORPHINE 4 MG/ML 1ML VIAL IV ONE ×2 (20:05→20:55)
[2022-05-26] MEDS ORDERED: ONDANSETRON 4MG 2ML VIAL IV ONE (20:05)
[2022-05-26 20:11] LABS: BLOOD UREA NITROGEN 29 MG/DL (9-23); CARBON DIOXIDE LEVEL 27 MMOL/L (20-31); CHLORIDE LEVEL 105 MMOL/L (98-107); CREATININE FOR GFR 0.72 MG/DL (0.55-1.30); GLOMERULAR FILTRATION RATE > 60.0 (>60); GLUCOSE, FASTING 88 MG/DL (60-100); POTASSIUM SERUM 4.2 MMOL/L (3.5-5.1); SODIUM LEVEL 139 MMOL/L (136-145)
[2022-05-26] MEDS ORDERED: CIPROFLOXACIN 500MG TABLET PO ONE (20:55)
[2022-05-26] MEDS ORDERED: CIPR-249 PO (21:01)
[2022-05-26] MEDS ORDERED: SIME180C25 PO (21:03)
[2022-05-26 21:35] VITALS: BP 130/69
== END 2022-05-26 21:36 | disposition home or self-care (01) ==
LOC: M ED 20:23
DX: N39.0 Urinary tract infection, site not specified (principal); R51.9 Headache, unspecified; Z87.442 Personal history of urinary calculi; K21.9 Gastro-esophageal reflux disease without esophagitis; E28.2 Polycystic ovarian syndrome; Z90.89 Acquired absence of other organs; Z90.710 Acquired absence of both cervix and uterus; Z88.0 Allergy status to penicillin; Z88.5 Allergy status to narcotic agent; Z79.899 Other long term (current) drug therapy
CPT/HCPCS: 74176; 80048; 81000; 81015; 85025; 87086; 96361; 96374; 96375; 96376; 99283; J2405

== ENCOUNTER 2022-08-17 14:39 | Emergency (ER) | payer MEDICAID, OTHER, SELFPAY ==
[~2022-08-17] VITALS: Ht 160 cm; Wt 60.4 kg
[~2022-08-17 14:39] MED LIST changes: +CIPR-249 PO; +SIME180C25 PO
[2022-08-17] MEDS ORDERED: PROZ20CA11 (14:53)
[2022-08-17] MEDS ORDERED: HYDROMORPHONE HCL 0.5 MG/ 0.5 ML SYRINGE IV ONE ×2 (15:45→17:35)
[2022-08-17] MEDS ORDERED: NS 1,000 ML IV ONE (15:45)
[2022-08-17] MEDS ORDERED: ONDANSETRON 4MG 2ML VIAL IV ONE (15:45)
[2022-08-17 16:14] LABS: BASO % 0.4 % (0.0-1.0); EOS # 0.2 10^3/uL (0.0-0.5); EOS % 2.3 % (0.0-3.0); HEMATOCRIT 43.6 % (36.0-47.0); HEMOGLOBIN 14.7 g/dl (12.0-15.5); LYMPH # 1.6 10^3/uL (1.5-5.0); LYMPH % 18.1 % (24.0-44.0); MEAN CORPUSCULAR HEMOGLOBIN 30.2 pg (27.0-33.0); MEAN CORPUSCULAR HGB CONC 33.7 g/dl (32.0-36.5); MEAN CORPUSCULAR VOLUME 89.7 fl (80.0-96.0); MONO # 0.6 10^3/uL (0.0-0.8); MONO % 6.5 % (2.0-8.0); NEUTROPHILS # 6.5 10^3/uL (1.5-8.5); NEUTROPHILS % 72.4 % (36.0-66.0); PLATELET COUNT, AUTOMATED 187 10^3/uL (150-450); RED BLOOD COUNT 4.86 10^6/uL (4.00-5.40)
[2022-08-17 16:47] LABS: ALBUMIN 4.2 G/DL (3.2-5.2); BILIRUBIN,DIRECT 0.2 MG/DL (<0.4); BILIRUBIN,TOTAL 0.7 MG/DL (0.3-1.2); TOTAL PROTEIN 6.7 G/DL (5.7-8.2)
[2022-08-17] MEDS ORDERED: METOCLOPRAMIDE INJ 10MG/2ML VIAL IV ONE (17:35)
[2022-08-17] MEDS: GASTROGRAFIN SOLUTION 30ML PO SCH ×2 (18:13→18:40)
[2022-08-17] MEDS ORDERED: ISOVUE-370 76% 100ML VIAL As Ordered ONE (19:25)
[2022-08-17] MEDS ORDERED: GI COCKTAIL 50ML BTL(HYOSCYAMINE/MAALOX/LIDOCAINE VISCOUS)(1:3:1) PO ONE (20:05)
[2022-08-17] MEDS ORDERED: ONDA4TAB6 PO (20:15)
[2022-08-17] MEDS ORDERED: PRIL20TA2 PO (20:15)
[2022-08-17 20:45] VITALS: BP 119/54
== END 2022-08-17 21:30 | disposition home or self-care (01) ==
LOC: M ED 14:39
DX: A08.4 Viral intestinal infection, unspecified (principal); N80.9 Endometriosis, unspecified; Z90.710 Acquired absence of both cervix and uterus; Z88.1 Allergy status to other antibiotic agents; Z88.5 Allergy status to narcotic agent; N28.1 Cyst of kidney, acquired; Z79.899 Other long term (current) drug therapy
CPT/HCPCS: 74177; 76705; 80047; 80076; 81001; 83690; 85025; 93041; 96361; 96374; 96375; 96376; 99284; J1170; J2405; J2765; Q9963; Q9967

== ENCOUNTER 2022-09-07 17:21 | Emergency (ER) | payer OTHER ==
[~2022-09-07] VITALS: Ht 160 cm; Wt 61.8 kg
[~2022-09-07 17:21] MED LIST changes: +PRIL20TA2 PO; +PROZ20CA11
[2022-09-07] MEDS ORDERED: LAMI1TAB8 (17:31)
[2022-09-07] MEDS ORDERED: PROT1TAB2 (17:31)
[2022-09-07] MEDS ORDERED: PROM25TA12 (17:31)
[2022-09-07] MEDS ORDERED: BUSP30TA (17:31)
[2022-09-07] MEDS ORDERED: PERCOCET 5MG/325MG TAB PO ONE (19:50)
[2022-09-07] MEDS ORDERED: PERC5TAB12 PO (20:44)
[2022-09-07 20:56] VITALS: BP 133/90
== END 2022-09-07 20:58 | disposition home or self-care (01) ==
LOC: M ED 17:21
DX: K02.9 Dental caries, unspecified (principal); M26.601 Right temporomandibular joint disorder, unspecified; Z88.1 Allergy status to other antibiotic agents; Z88.5 Allergy status to narcotic agent; Z79.83 Long term (current) use of bisphosphonates; Z79.899 Other long term (current) drug therapy

== ENCOUNTER 2023-05-20 15:39 | Emergency (ER) | payer OTHER ==
[~2023-05-20] VITALS: Ht 160 cm; Wt 62.1 kg
[~2023-05-20 15:39] MED LIST changes: +BUSP30TA; +LAMI1TAB8; +PERC5TAB12 PO; +PROM25TA12; +PROT1TAB2
[2023-05-20 17:50] LABS: BASO % 0.2 % (0.0-1.0); EOS # 0.1 10^3/uL (0.0-0.5); EOS % 1.7 % (0.0-3.0); HEMATOCRIT 42.6 % (36.0-47.0); HEMOGLOBIN 14.5 g/dl (12.0-15.5); LYMPH % 23.3 % (24.0-44.0); MEAN CORPUSCULAR HEMOGLOBIN 29.7 pg (27.0-33.0); MEAN CORPUSCULAR VOLUME 87.1 fl (80.0-96.0); MONO # 0.5 10^3/uL (0.0-0.8); MONO % 6.4 % (2.0-8.0); NEUTROPHILS # 5.8 10^3/uL (1.5-8.5); PLATELET COUNT, AUTOMATED 179 10^3/uL (150-450); RED BLOOD COUNT 4.89 10^6/uL (4.00-5.40); WHITE BLOOD COUNT 8.5 10^3/uL (4.0-10.0)
[2023-05-20 18:10] LABS: BLOOD UREA NITROGEN 9 MG/DL (9-23); CARBON DIOXIDE LEVEL 26 MMOL/L (20-31); CHLORIDE LEVEL 108 MMOL/L (98-107); CREATININE FOR GFR 0.66 MG/DL (0.55-1.30); GLOMERULAR FILTRATION RATE > 60.0 (>60); GLUCOSE, FASTING 90 MG/DL (60-100); POTASSIUM SERUM 4.1 MMOL/L (3.5-5.1); SODIUM LEVEL 141 MMOL/L (136-145)
[2023-05-20] MEDS ORDERED: ONDANSETRON 4MG 2ML VIAL IV ONE (19:30)
[2023-05-20] MEDS: MORPHINE 2 MG/ML 1ML VIAL IV PRN ×2 (19:49→20:38)
[2023-05-20 19:54] VITALS: TEMP 99.1
[2023-05-20 19:59] LABS: LIPASE 46 U/L (12-53)
[2023-05-20 20:02] LABS: ALBUMIN 4.1 G/DL (3.2-5.2); ALKALINE PHOSPHATASE 48 U/L (46-116); ALT/SGPT 16 U/L (7.0-40); AST/SGOT 18 U/L (<34); BILIRUBIN,DIRECT 0.2 MG/DL (<0.4); BILIRUBIN,TOTAL 0.6 MG/DL (0.3-1.2); TOTAL PROTEIN 6.7 G/DL (5.7-8.2)
[2023-05-20 20:06] LABS: HCG, SERUM QUALITATIVE NEGATIVE (NEGATIVE)
[2023-05-20] MEDS ORDERED: METOCLOPRAMIDE INJ 10MG/2ML VIAL IV ONE (20:40)
[2023-05-20] MEDS ORDERED: ONDA4TAB6 PO (22:51)
[2023-05-20] MEDS ORDERED: REGL10TA6 PO (22:51)
[2023-05-20 22:54] VITALS: BP 118/74; O2SAT 97
== END 2023-05-20 23:09 | disposition home or self-care (01) ==
LOC: M ED 15:39
DX: R10.31 Right lower quadrant pain (principal); Z88.1 Allergy status to other antibiotic agents; Z88.5 Allergy status to narcotic agent; Z88.8 Allergy status to other drugs, medicaments and biological substances; Z87.891 Personal history of nicotine dependence; Z79.1 Long term (current) use of non-steroidal anti-inflammatories (NSAID)
CPT/HCPCS: 74176; 80048; 80076; 81001; 83605; 83690; 84703; 85025; 87486; 87581; 87633; 87798; 96374; 96375; 99284; J2405; J2765

== ENCOUNTER 2023-07-08 17:31 | Emergency (ER) | payer OTHER ==
[~2023-07-08] VITALS: Ht 160 cm; Wt 63.6 kg
[2023-07-08] MEDS: ONDANSETRON 4MG ORAL DISINTEGRATING TAB PO ONE (19:44)
[2023-07-08] MEDS: methocarbamoL 750 MG TAB PO ONE (19:44)
[2023-07-08] MEDS: LIDOCAINE 5% (LIDODERM) PATCH TD ONE (19:44)
[2023-07-08] MEDS ORDERED: LIDO5DIS41 TD (21:29)
[2023-07-08 21:36] VITALS: BP 145/69; TEMP 97.8; O2SAT 97
== END 2023-07-08 21:41 | disposition home or self-care (01) ==
LOC: M ED 17:31
DX: M54.50 Low back pain, unspecified (principal); M25.552 Pain in left hip; N20.0 Calculus of kidney; F41.9 Anxiety disorder, unspecified; Z87.891 Personal history of nicotine dependence; F12.10 Cannabis abuse, uncomplicated; Z88.1 Allergy status to other antibiotic agents; Z88.8 Allergy status to other drugs, medicaments and biological substances; Z79.52 Long term (current) use of systemic steroids; Z79.899 Other long term (current) drug therapy

== ENCOUNTER 2023-08-29 14:10 | Emergency (ER) | payer OTHER ==
[~2023-08-29] VITALS: Ht 160 cm; Wt 64.3 kg
[~2023-08-29 14:10] MED LIST changes: +LIDO5DIS41 TD
[2023-08-29 16:37] VITALS: BP 132/86; TEMP 97.9; O2SAT 100
== END 2023-08-29 19:34 | disposition left against medical advice (07) ==
LOC: M ED 14:10
DX: Z53.21 Procedure and treatment not carried out due to patient leaving prior to being seen by health care provider (principal)

== ENCOUNTER → 2024-03-20 | Outpatient (CLI) | payer OTHER ==
[~2024-03-20] MED LIST changes: +ONDA-282 PO; -ONDA4TAB6 PO; -SIME180C25 PO; +SIME1CAP4 PO
== END ==
LOC: M CARPUL 13:28
PROVIDERS: ATTEND Family Medicine Addiction Medicine
DX: R05.9 Cough, unspecified (principal)

== ENCOUNTER 2024-04-11 17:33 | Emergency (ER) | payer OTHER ==
[~2024-04-11] VITALS: Ht 160 cm; Wt 64.3 kg
[~2024-04-11 17:33] MED LIST changes: -CYCL5TAB PO; +CYCL5TAB4 PO
[2024-04-11] MEDS ORDERED: ALBU8.5H (17:46)
[2024-04-11 18:35] LABS: BASO % 0.3 % (0.0-1.0); EOS # 0.3 10^3/uL (0.0-0.5); HEMATOCRIT 38.4 % (36.0-47.0); HEMOGLOBIN 13.1 g/dl (12.0-15.5); LYMPH # 2.4 10^3/uL (1.5-5.0); LYMPH % 37.9 % (24.0-44.0); MEAN CORPUSCULAR HEMOGLOBIN 29.6 pg (27.0-33.0); MEAN CORPUSCULAR HGB CONC 34.1 g/dl (32.0-36.5); MEAN CORPUSCULAR VOLUME 86.7 fl (80.0-96.0); MONO # 0.4 10^3/uL (0.0-0.8); MONO % 6.5 % (2.0-8.0); NEUTROPHILS # 3.3 10^3/uL (1.5-8.5); NEUTROPHILS % 51.3 % (36.0-66.0); PLATELET COUNT, AUTOMATED 179 10^3/uL (150-450); RED BLOOD COUNT 4.43 10^6/uL (4.00-5.40); WHITE BLOOD COUNT 6.4 10^3/uL (4.0-10.0)
[2024-04-11 18:36] LABS: KETONE, URINE AUTO RFX TRACE mg/dL (NEGATIVE); MUCUS, URINE RFX SMALL (NEGATIVE); NITRITE, URINE AUTO RFX NEGATIVE (NEGATIVE); RBC, URINE AUTO RFX 0 /HPF (0-3); SQUAM EPITHELIAL CELL UR AURFX 9 /HPF (0-6); WBC, URINE AUTO RFX 0 /HPF (0-3)
[2024-04-11 18:38] LABS: LEUKOCYTE ESTERASE UR AUTO RFX TRACE (NEGATIVE)
[2024-04-11 18:59] LABS: LIPASE 60 U/L (12-53)
[2024-04-11 19:00] LABS: AMYLASE 59 U/L (30-118)
[2024-04-11 19:01] LABS: ALBUMIN 3.8 G/DL (3.2-5.2); ALKALINE PHOSPHATASE 40 U/L (35-104); ALT/SGPT 16 U/L (7.0-40); AST/SGOT 11 U/L (<34); BILIRUBIN,DIRECT 0.1 MG/DL (<0.4); BILIRUBIN,TOTAL 0.3 MG/DL (0.3-1.2); BLOOD UREA NITROGEN 12 MG/DL (9-23); CALCIUM LEVEL 9.2 MG/DL (8.5-10.1); CARBON DIOXIDE LEVEL 27 MMOL/L (20-31); CHLORIDE LEVEL 109 MMOL/L (98-107); GLOMERULAR FILTRATION RATE > 60.0 (>60); GLUCOSE, FASTING 92 MG/DL (60-100); SODIUM LEVEL 142 MMOL/L (136-145); TOTAL PROTEIN 6.6 G/DL (5.7-8.2)
[2024-04-11] MEDS: ACETAMINOPHEN *IV* 1,000 MG in IV 1 EA IV ONE (19:55)
[2024-04-11] MEDS ORDERED: ISOVUE-370 76% 100ML VIAL As Ordered ONE (19:57)
[2024-04-11 20:15] VITALS: BP 103/57; TEMP 98.8; O2SAT 96
[2024-04-11] MEDS: ONDANSETRON 4MG 2ML VIAL IV ONE (20:16)
[2024-04-11] MEDS: METOCLOPRAMIDE INJ 10MG/2ML VIAL IV ONE (21:20)
[2024-04-11] MEDS ORDERED: REGL10TA6 PO (22:46)
[2024-04-11] MEDS ORDERED: MIRA3350 PO (22:46)
== END 2024-04-11 22:53 | disposition home or self-care (01) ==
LOC: M ED 17:33
DX: K59.00 Constipation, unspecified (principal); R10.9 Unspecified abdominal pain; K21.9 Gastro-esophageal reflux disease without esophagitis; E28.2 Polycystic ovarian syndrome; F12.10 Cannabis abuse, uncomplicated; Z88.1 Allergy status to other antibiotic agents; Z88.8 Allergy status to other drugs, medicaments and biological substances; Z79.51 Long term (current) use of inhaled steroids; Z79.899 Other long term (current) drug therapy
CPT/HCPCS: 74177; 76856; 80048; 80076; 81001; 82150; 83690; 85025; 87086; 93976; 96374; 96375; 99284; J0131; J2405; J2765; Q9967

== ENCOUNTER 2024-06-07 13:22 | Emergency (ER) | payer OTHER ==
[~2024-06-07] VITALS: Ht 160 cm; Wt 65.4 kg
[~2024-06-07 13:22] MED LIST changes: +ALBU8.5H; +MIRA3350 PO
[2024-06-07 14:58] LABS: BASO % 0.3 % (0.0-1.0); EOS # 0.3 10^3/uL (0.0-0.5); EOS % 3.2 % (0.0-3.0); HEMATOCRIT 41.8 % (36.0-47.0); HEMOGLOBIN 14.4 g/dl (12.0-15.5); LYMPH # 2.1 10^3/uL (1.5-5.0); LYMPH % 21.1 % (24.0-44.0); MEAN CORPUSCULAR HEMOGLOBIN 29.9 pg (27.0-33.0); MEAN CORPUSCULAR HGB CONC 34.4 g/dl (32.0-36.5); MEAN CORPUSCULAR VOLUME 86.9 fl (80.0-96.0); MONO # 0.6 10^3/uL (0.0-0.8); MONO % 5.5 % (2.0-8.0); NEUTROPHILS % 69.5 % (36.0-66.0); PLATELET COUNT, AUTOMATED 191 10^3/uL (150-450); RED BLOOD COUNT 4.81 10^6/uL (4.00-5.40)
[2024-06-07 15:30] LABS: BLOOD UREA NITROGEN 14 MG/DL (9-23); CALCIUM LEVEL 9.7 MG/DL (8.5-10.1); CARBON DIOXIDE LEVEL 26 MMOL/L (20-31); CHLORIDE LEVEL 105 MMOL/L (98-107); GLOMERULAR FILTRATION RATE > 60.0 (>60); GLUCOSE, FASTING 87 MG/DL (60-100); POTASSIUM SERUM 3.9 MMOL/L (3.5-5.1); SODIUM LEVEL 141 MMOL/L (136-145)
[2024-06-07 15:34] LABS: THYROID STIMULATING HORMONE 0.825 uIU/ML (0.55-4.78)
[2024-06-07] MEDS: METOCLOPRAMIDE INJ 10MG/2ML VIAL IV ONE (16:59)
[2024-06-07] MEDS: ACETAMINOPHEN *IV* 1,000 MG in IV 1 EA IV ONE (18:43)
[2024-06-07] MEDS: LORazepam 2 MG/ML 1ML VIAL IV STA (18:44)
[2024-06-07 18:45] VITALS: TEMP 98.4
[2024-06-07 22:21] VITALS: BP 132/70; O2SAT 99
== END 2024-06-07 22:29 | disposition home or self-care (01) ==
LOC: M ED 13:22
DX: R55 Syncope and collapse (principal); R51.9 Headache, unspecified; I45.10 Unspecified right bundle-branch block; K21.9 Gastro-esophageal reflux disease without esophagitis; E28.2 Polycystic ovarian syndrome; F41.9 Anxiety disorder, unspecified; F32.A Depression, unspecified; Z87.442 Personal history of urinary calculi; Z88.1 Allergy status to other antibiotic agents; Z88.5 Allergy status to narcotic agent; Z79.52 Long term (current) use of systemic steroids; Z79.899 Other long term (current) drug therapy
CPT/HCPCS: 70450; 70544; 70551; 80048; 84443; 85025; 93005; 93041; 94760; 96374; 96375; 99285; J0131; J2060; J2765